=== PATIENT | female | born 1955 | race Caucasian/White ===

== ENCOUNTER 2018-06-22 07:56 | Day surgery (SDC) | payer OTHER ==
[~2018-06-22 07:56] MED LIST: ATOR10 PO; BENAML10/2 PO; FEXPSEER PO; FISH1000 PO; INSDET100; INVOKAMET 150-1 EACH PO; K-Tab10 MEQ PO; MELO7.5 PO; Multiple Vitam1 EAC1 PO; OMEP10ER PO; VARE1; Vitamin D2000 UNIT PO
== END 2018-06-22 22:49 | disposition home or self-care (01) ==
LOC: WOUND 07:56
DX: E11.621 Type 2 diabetes mellitus with foot ulcer (principal); L97.515 Non-pressure chronic ulcer of other part of right foot with muscle involvement without evidence of necrosis; I10 Essential (primary) hypertension; E78.5 Hyperlipidemia, unspecified; G47.30 Sleep apnea, unspecified; F17.210 Nicotine dependence, cigarettes, uncomplicated

== ENCOUNTER 2018-06-29 00:10 | Day surgery (SDC) | payer OTHER | END 2018-06-29 23:07 | disposition home or self-care (01) | LOC: WOUND 00:10 | DX: E11.621 Type 2 diabetes mellitus with foot ulcer (principal); L97.515 Non-pressure chronic ulcer of other part of right foot with muscle involvement without evidence of necrosis; I10 Essential (primary) hypertension; E78.5 Hyperlipidemia, unspecified; G47.30 Sleep apnea, unspecified | CPT/HCPCS: G0463 ==

== ENCOUNTER 2018-07-06 14:56 | Day surgery (SDC) | payer OTHER, BC | END 2018-07-06 22:49 | disposition home or self-care (01) | LOC: WOUND 14:56 | DX: T81.89XA Other complications of procedures, not elsewhere classified, initial encounter (principal); E11.621 Type 2 diabetes mellitus with foot ulcer; L97.515 Non-pressure chronic ulcer of other part of right foot with muscle involvement without evidence of necrosis; E11.59 Type 2 diabetes mellitus with other circulatory complications; G47.30 Sleep apnea, unspecified; E78.5 Hyperlipidemia, unspecified; I10 Essential (primary) hypertension | CPT/HCPCS: G0463 ==

== ENCOUNTER 2018-07-13 10:24 | Day surgery (SDC) | payer OTHER, BC | END 2018-07-13 22:48 | disposition home or self-care (01) | LOC: WOUND 10:24 | DX: E11.621 Type 2 diabetes mellitus with foot ulcer (principal); L97.512 Non-pressure chronic ulcer of other part of right foot with fat layer exposed; M89.8X9 Other specified disorders of bone, unspecified site; I10 Essential (primary) hypertension; E78.5 Hyperlipidemia, unspecified; G47.30 Sleep apnea, unspecified ==

== ENCOUNTER 2018-07-27 10:33 | Day surgery (SDC) | payer OTHER, BC | END 2018-07-27 23:07 | disposition home or self-care (01) | LOC: WOUND 10:33 | DX: E11.621 Type 2 diabetes mellitus with foot ulcer (principal); L97.512 Non-pressure chronic ulcer of other part of right foot with fat layer exposed; I10 Essential (primary) hypertension; E78.5 Hyperlipidemia, unspecified; G47.30 Sleep apnea, unspecified; F17.200 Nicotine dependence, unspecified, uncomplicated | CPT/HCPCS: G0463 ==

== ENCOUNTER 2018-08-10 00:16 | Day surgery (SDC) | payer OTHER, BC | END 2018-08-10 22:59 | disposition home or self-care (01) | LOC: WOUND 00:16 | DX: E11.621 Type 2 diabetes mellitus with foot ulcer (principal); L97.512 Non-pressure chronic ulcer of other part of right foot with fat layer exposed; M89.8X9 Other specified disorders of bone, unspecified site; I10 Essential (primary) hypertension; E11.9 Type 2 diabetes mellitus without complications; E78.5 Hyperlipidemia, unspecified; G47.30 Sleep apnea, unspecified | CPT/HCPCS: G0463 ==

== ENCOUNTER 2020-07-13 09:52 | Day surgery (SDC) | payer BC ==
[~2020-07-13] VITALS: Ht 165.1 cm; Wt 110.9 kg
== END 2020-07-13 12:51 | disposition home or self-care (01) ==
LOC: ORSCSDS 09:52
PROC: 0DBN8ZX Excision of Sigmoid Colon, Via Natural or Artificial Opening Endoscopic, Diagnostic (ICD-10-PCS; principal; 2020-07-13)
DX: Z12.11 Encounter for screening for malignant neoplasm of colon (principal); D12.5 Benign neoplasm of sigmoid colon; K57.30 Diverticulosis of large intestine without perforation or abscess without bleeding; Z86.010 Personal history of colon polyps; E11.9 Type 2 diabetes mellitus without complications; G47.33 Obstructive sleep apnea (adult) (pediatric); E78.5 Hyperlipidemia, unspecified; E66.01 Morbid (severe) obesity due to excess calories; Z68.41 Body mass index [BMI] 40.0-44.9, adult; Z79.4 Long term (current) use of insulin; Z79.899 Other long term (current) drug therapy; Z87.891 Personal history of nicotine dependence
CPT/HCPCS: 82947; 88305; J2704; J7120

== ENCOUNTER 2022-04-22 04:27 | Emergency (ER) | payer BC ==
[~2022-04-22] VITALS: Ht 165.1 cm; Wt 120.2 kg
[~2022-04-22 04:27] MED LIST changes: +OLMESARTAN MEDO20 MG PO; +SYNJARDY XR 251 EAC1 PO
[2022-04-22 04:51] LABS: Source, Urine Clean Catch
[2022-04-22 04:59] LABS: Bilirubin, Urine Neg (Neg); Blood, Urine 3+ (Neg); Glucose Qualitative, Urine 4+ (Neg); Ketones, Urine 3+ (Neg); Leukocyte Esterase, Urine 2+ (Neg); Nitrite, Urine Neg (Neg); Protein, Urine 2+ (Neg); Urobilinogen, Urine NORM (Normal)
[2022-04-22 05:02] LABS: Appearance, Urine Hazy (Clear); Color, Urine Yellow (P-Yellow)
[2022-04-22 05:05] LABS: BASOPHILS ABSOLUTE AUTO 0.04 K/mm3 (0.00-0.23); BASOPHILS PERCENT AUTO 1 % (0-2); EOSINOPHILS PERCENT AUTO 1 % (0-6); Hematocrit 44.4 % (33.0-51.0); Hemoglobin 15.2 g/dL (11.5-16.0); IMMATURE GRAN ABSOLUTE AUTO 0.02 K/mm3 (0.00-0.10); IMMATURE GRAN PERCENT AUTO 0 % (0-1); LYMPHOCYTES ABSOLUTE AUTO 2.12 K/mm3 (0.84-5.20); LYMPHOCYTES PERCENT AUTO 30 % (21-46); MONOCYTES PERCENT AUTO 6 % (4-13); Mean Corpuscular HGB 29.6 pg (26.0-34.0); Mean Corpuscular HGB Conc 34.2 g/dL (31.5-36.5); Mean Corpuscular Volume 86 fL (80-100); NEUTROPHILS ABSOLUTE AUTO 4.32 K/mm3 (1.96-9.15); NEUTROPHILS PERCENT AUTO 62 % (41-73); Platelet Count 192 K/mm3 (150-400); RDW Coefficient Variation 13.2 % (11.7-14.2); RDW Standard Deviation 41.6 fL (35.1-46.3); Red Blood Cell Count 5.14 M/mm3 (3.80-5.20)
[2022-04-22 05:08] LABS: Amorphous Mod (0-Heavy); Bacteria Mod /hpf; Mucus Mod (0-Heavy); Squamous Epithelial Cells Few /hpf (Few); White Blood Cells, Urine TNTC /hpf (0-5)
[2022-04-22 05:24] LABS: Albumin, Blood 3.8 g/dL (3.4-5.0); Bilirubin, Total 0.3 mg/dL (0.1-1.0); Bun/Creatinine Ratio 23.5 (12.0-20.0); Calcium, Blood 8.6 mg/dL (8.5-10.1); Creatinine, Blood 0.68 mg/dL (0.40-1.00); Potassium, Blood 3.7 mmol/L (3.5-5.5); Total Protein, Blood 7.8 g/dL (6.4-8.2)
[2022-04-22] MEDS ORDERED: HYDR1TAB94 PO (06:46)
[2022-04-22] MEDS ORDERED: TAMS.4ER PO (06:46)
[2022-04-22] MEDS ORDERED: CEFP200 PO (06:46)
== END 2022-04-22 07:20 | disposition home or self-care (01) ==
LOC: ER 04:27
PROVIDERS: Student in an Organized Health Care Education/Training Program
DX: N13.6 Pyonephrosis (principal); N39.0 Urinary tract infection, site not specified; Z79.899 Other long term (current) drug therapy; Z87.891 Personal history of nicotine dependence
CPT/HCPCS: 74176; 80053; 81001; 85025; A9270; J1170; J1885; J2405; J7030

== ENCOUNTER 2022-10-01 07:58 | Emergency (ER) | payer MEDICARE, OTHER ==
[~2022-10-01] VITALS: Ht 160 cm; Wt 113.4 kg
[~2022-10-01 07:58] MED LIST changes: +CEFP200 PO; +CEPH500 PO; +FLUC150A PO; +HYDR1TAB94 PO; +TAMS.4ER PO
[2022-10-01 08:17] VITALS: BP 170/101
[2022-10-01 08:27] LABS: Source, Urine Clean Catch
[2022-10-01 08:30] LABS: Appearance, Urine Clear (Clear); Bilirubin, Urine Neg (Neg); Blood, Urine Neg (Neg); Color, Urine Yellow (P-Yellow); Glucose Qualitative, Urine Neg (Neg); Ketones, Urine Neg (Neg); Leukocyte Esterase, Urine 1+ (Neg); Nitrite, Urine Neg (Neg); Protein, Urine Neg (Neg); Specific Gravity, Urine 1.015 (1.003-1.022); Urobilinogen, Urine NORM (Normal)
[2022-10-01 08:50] LABS: Bacteria Mod /hpf
[2022-10-01 08:52] LABS: Red Blood Cells, Urine Not Seen /hpf (0-2); Squamous Epithelial Cells Few /hpf (Few)
[2022-10-01 08:53] LABS: Transitional Epithelial Cells Rare /hpf (0-Rare)
[2022-10-01] MEDS ORDERED: FLUC150A PO (09:23)
[2022-10-01] MEDS ORDERED: LEVO750 PO (09:23)
== END 2022-10-01 09:28 | disposition home or self-care (01) ==
LOC: ER 07:58
PROVIDERS: Physician Assistant
DX: N39.0 Urinary tract infection, site not specified (principal); Z87.442 Personal history of urinary calculi; Z87.891 Personal history of nicotine dependence
CPT/HCPCS: 81001; 87086; 99283; A9270

== ENCOUNTER → 2022-10-24 | Outpatient (CLI) | payer MEDICARE, OTHER ==
[~2022-10-24] MED LIST changes: +LEVO750 PO
[2022-10-24 10:59] LABS: Protein, Urine Quantitative 7.4 mg/dL (0.0-11.9)
[2022-10-24 11:12] LABS: Calcium, Urine 7.2 mg/dL (< 17.5)
[2022-10-24 11:13] LABS: Phosphorus, Urine 78.4 mg/dL (20.0-60.0)
[2022-10-24 11:34] LABS: Microalbumin, Urine Quant. 27.1 mg/L (0.000-20.000); Uric Acid, Urine 40.2 mg/dL (7.5-49.5)
[2022-10-29 05:12] LABS: METANEPHRINE, UR 52 ug/L (Undefined)
== END | disposition home or self-care (01) ==
LOC: LAB SHORT 09:40 → LAB 09:40
PROVIDERS: Internal Medicine Nephrology
DX: N18.2 Chronic kidney disease, stage 2 (mild) (principal); D63.1 Anemia in chronic kidney disease; N25.81 Secondary hyperparathyroidism of renal origin; E55.9 Vitamin D deficiency, unspecified; E78.00 Pure hypercholesterolemia, unspecified; R76.9 Abnormal immunological finding in serum, unspecified; R94.5 Abnormal results of liver function studies; R94.6 Abnormal results of thyroid function studies; D51.8 Other vitamin B12 deficiency anemias; D52.8 Other folate deficiency anemias; D50.9 Iron deficiency anemia, unspecified
CPT/HCPCS: 81050; 82043; 82340; 82507; 82570; 83835; 83945; 84105; 84133; 84156; 84300; 84560

== ENCOUNTER 2023-02-17 02:43 | Emergency (ER) | payer MEDICARE, OTHER ==
[~2023-02-17] VITALS: Ht 162.6 cm; Wt 95.2 kg
[2023-02-17 03:18] LABS: Source, Urine Clean Catch
[2023-02-17 03:20] LABS: BASOPHILS ABSOLUTE AUTO 0.03 K/mm3 (0.00-0.23); BASOPHILS PERCENT AUTO 0 % (0-2); EOSINOPHILS ABSOLUTE AUTO 0.16 K/mm3 (0.00-0.68); EOSINOPHILS PERCENT AUTO 2 % (0-6); Hematocrit 43.9 % (33.0-51.0); Hemoglobin 14.8 g/dL (11.5-16.0); IMMATURE GRAN ABSOLUTE AUTO 0.01 K/mm3 (0.00-0.10); IMMATURE GRAN PERCENT AUTO 0 % (0-1); LYMPHOCYTES PERCENT AUTO 49 % (21-46); MONOCYTES ABSOLUTE AUTO 0.52 K/mm3 (0.16-1.47); MONOCYTES PERCENT AUTO 8 % (4-13); Mean Corpuscular HGB Conc 33.7 g/dL (31.5-36.5); Mean Corpuscular Volume 89 fL (80-100); Mean Platelet Volume 10.1 fL (9.1-12.4); NEUTROPHILS ABSOLUTE AUTO 2.82 K/mm3 (1.96-9.15); NEUTROPHILS PERCENT AUTO 41 % (41-73); Platelet Count 191 K/mm3 (150-400); RDW Coefficient Variation 12.8 % (11.7-14.2); RDW Standard Deviation 41.5 fL (35.1-46.3); Red Blood Cell Count 4.93 M/mm3 (3.80-5.20); White Blood Cell Count 6.94 K/mm3 (4.00-11.30)
[2023-02-17 03:24] LABS: Bilirubin, Urine Neg (Neg); Blood, Urine 3+ (Neg); Glucose Qualitative, Urine 1+ (Neg); Ketones, Urine 1+ (Neg); Leukocyte Esterase, Urine 2+ (Neg); Nitrite, Urine Neg (Neg); Protein, Urine 2+ (Neg); Urobilinogen, Urine NORM (Normal)
[2023-02-17 03:30] LABS: Albumin, Blood 3.8 g/dL (3.4-5.0); Bilirubin, Total 0.3 mg/dL (0.1-1.0); Calcium, Blood 8.4 mg/dL (8.5-10.1); Creatinine, Blood 0.8 mg/dL (0.40-1.00); Globulin, Blood 3.9 g/dL (2.2-4.0); Total Protein, Blood 7.7 g/dL (6.4-8.2)
[2023-02-17 03:32] LABS: Appearance, Urine Hazy (Clear); Color, Urine Yellow (P-Yellow)
[2023-02-17 03:43] LABS: Bacteria Mod /hpf; Squamous Epithelial Cells Few /hpf (Few); White Blood Cells, Urine 25-50 /hpf (0-5)
[2023-02-17 05:37] VITALS: BP 193/88
[2023-02-17] MEDS ORDERED: Roxicodone5 MG PO (05:38)
[2023-02-17] MEDS ORDERED: CEFD300 PO (05:38)
[2023-02-17] MEDS ORDERED: Flomax0.4 MG PO (05:38)
== END 2023-02-17 05:46 | disposition home or self-care (01) ==
LOC: ER 02:43
PROVIDERS: Emergency Medicine
DX: N13.2 Hydronephrosis with renal and ureteral calculous obstruction (principal); G47.33 Obstructive sleep apnea (adult) (pediatric); K59.00 Constipation, unspecified; Z87.891 Personal history of nicotine dependence; Z79.1 Long term (current) use of non-steroidal anti-inflammatories (NSAID); Z79.891 Long term (current) use of opiate analgesic; Z79.899 Other long term (current) drug therapy
CPT/HCPCS: 74176; 76770; 80053; 81001; 85025; 87086; 96365; 96375; 99284-25; A9270; J0696; J1885

== ENCOUNTER 2023-02-25 16:14 | Emergency (ER) | payer MEDICARE, OTHER ==
[~2023-02-25] VITALS: Ht 162.6 cm; Wt 113.4 kg
[~2023-02-25 16:14] MED LIST changes: -ONDA4ODT MM; -Percocet 5-3251 EACH PO; -TOUJEO MAX300 UNIT/2 SC; -TRULICITY4.5 MG/0.5 SC
[2023-02-25 17:07] LABS: BASOPHILS ABSOLUTE AUTO 0.03 K/mm3 (0.00-0.23); BASOPHILS PERCENT AUTO 0 % (0-2); EOSINOPHILS ABSOLUTE AUTO 0.15 K/mm3 (0.00-0.68); EOSINOPHILS PERCENT AUTO 2 % (0-6); Hematocrit 43.3 % (33.0-51.0); Hemoglobin 14.4 g/dL (11.5-16.0); IMMATURE GRAN ABSOLUTE AUTO 0.01 K/mm3 (0.00-0.10); IMMATURE GRAN PERCENT AUTO 0 % (0-1); LYMPHOCYTES ABSOLUTE AUTO 2.01 K/mm3 (0.84-5.20); LYMPHOCYTES PERCENT AUTO 30 % (21-46); MONOCYTES ABSOLUTE AUTO 0.45 K/mm3 (0.16-1.47); MONOCYTES PERCENT AUTO 7 % (4-13); Mean Corpuscular HGB 29.8 pg (26.0-34.0); Mean Corpuscular HGB Conc 33.3 g/dL (31.5-36.5); Mean Corpuscular Volume 90 fL (80-100); Mean Platelet Volume 9.9 fL (9.1-12.4); NEUTROPHILS PERCENT AUTO 61 % (41-73); Platelet Count 227 K/mm3 (150-400); RDW Coefficient Variation 12.9 % (11.7-14.2); RDW Standard Deviation 42.1 fL (35.1-46.3); Red Blood Cell Count 4.83 M/mm3 (3.80-5.20); White Blood Cell Count 6.75 K/mm3 (4.00-11.30)
[2023-02-25 17:22] LABS: Source, Urine Clean Catch
[2023-02-25 17:27] LABS: Appearance, Urine Hazy (Clear); Bilirubin, Urine Neg (Neg); Blood, Urine 2+ (Neg); Color, Urine Yellow (P-Yellow); Glucose Qualitative, Urine 4+ (Neg); Ketones, Urine Neg (Neg); Leukocyte Esterase, Urine 2+ (Neg); Nitrite, Urine Pos (Neg); Protein, Urine 2+ (Neg); Urobilinogen, Urine NORM (Normal)
[2023-02-25 17:29] LABS: Albumin, Blood 3.6 g/dL (3.4-5.0); Albumin/Globulin Ratio 0.9 (0.8-1.8); Bilirubin, Total 0.3 mg/dL (0.1-1.0); Calcium, Blood 8.8 mg/dL (8.5-10.1); Globulin, Blood 4.2 g/dL (2.2-4.0); Potassium, Blood 4.2 mmol/L (3.5-5.5); Total Protein, Blood 7.8 g/dL (6.4-8.2)
[2023-02-25 17:38] LABS: Bacteria Mod /hpf; Squamous Epithelial Cells Few /hpf (Few)
[2023-02-25] MEDS ORDERED: TOUJEO MAX300 UNIT/2 SC (18:50)
[2023-02-25] MEDS ORDERED: TRULICITY4.5 MG/0.5 SC (18:50)
[2023-02-25 18:59] VITALS: BP 169/88
[2023-02-25] MEDS ORDERED: TAMS.4ER PO (19:34)
[2023-02-25] MEDS ORDERED: Percocet 5-3251 EACH PO (19:34)
[2023-02-25] MEDS ORDERED: ONDA4ODT MM (19:34)
== END 2023-02-25 19:43 | disposition home or self-care (01) ==
LOC: ER 16:14
PROVIDERS: Physician Assistant
DX: N39.0 Urinary tract infection, site not specified (principal); E11.9 Type 2 diabetes mellitus without complications; Z79.899 Other long term (current) drug therapy; Z87.891 Personal history of nicotine dependence; Z87.442 Personal history of urinary calculi
CPT/HCPCS: 80053; 81001; 85025; 87086; 96374; 96375; 99283-25; A9270; J1885; J2405

== ENCOUNTER → 2023-02-25 | Outpatient (CLI) | payer MEDICARE, OTHER ==
[~2023-02-25] MED LIST changes: +CEFD300 PO; +Flomax0.4 MG PO; +K-TAB ER20 MEQ PO; -K-Tab10 MEQ PO; -OMEP10ER PO; +OMEP20ER PO; +ONDA4ODT MM; +Percocet 5-3251 EACH PO; +Roxicodone5 MG PO; +TOUJEO MAX300 UNIT/2 SC; +TRULICITY4.5 MG/0.5 SC
== END ==
LOC: LAB SHORT 17:01 → LAB 17:01
DX: N39.0 Urinary tract infection, site not specified (principal)
CPT/HCPCS: 87077; 87086; 87186

== ENCOUNTER → 2023-04-23 | Outpatient (CLI) | payer MEDICARE, OTHER ==
[~2023-04-23] MED LIST changes: +ONDA4ODT MM; +Percocet 5-3251 EACH PO; +TOUJEO MAX300 UNIT/2 SC; +TRULICITY4.5 MG/0.5 SC
== END ==
LOC: LAB 17:51 → LAB SHORT 17:51
DX: R30.0 Dysuria (principal)
CPT/HCPCS: 87086

== ENCOUNTER 2023-09-16 19:57 | Emergency (ER) | payer MEDICARE, OTHER ==
[~2023-09-16] VITALS: Ht 165.1 cm; Wt 77.1 kg
[2023-09-16 20:39] VITALS: BP 204/71
[2023-09-16 21:01] LABS: BASOPHILS ABSOLUTE AUTO 0.04 K/mm3 (0.00-0.23); BASOPHILS PERCENT AUTO 1 % (0-2); EOSINOPHILS ABSOLUTE AUTO 0.09 K/mm3 (0.00-0.68); EOSINOPHILS PERCENT AUTO 1 % (0-6); Hematocrit 43.6 % (33.0-51.0); Hemoglobin 14.7 g/dL (11.5-16.0); IMMATURE GRAN ABSOLUTE AUTO 0.01 K/mm3 (0.00-0.10); IMMATURE GRAN PERCENT AUTO 0 % (0-1); LYMPHOCYTES ABSOLUTE AUTO 1.57 K/mm3 (0.84-5.20); LYMPHOCYTES PERCENT AUTO 24 % (21-46); MONOCYTES ABSOLUTE AUTO 0.41 K/mm3 (0.16-1.47); MONOCYTES PERCENT AUTO 6 % (4-13); Mean Corpuscular HGB 30.2 pg (26.0-34.0); Mean Corpuscular HGB Conc 33.7 g/dL (31.5-36.5); Mean Corpuscular Volume 90 fL (80-100); Mean Platelet Volume 10.7 fL (9.1-12.4); NEUTROPHILS ABSOLUTE AUTO 4.47 K/mm3 (1.96-9.15); NEUTROPHILS PERCENT AUTO 68 % (41-73); Platelet Count 191 K/mm3 (150-400); RDW Coefficient Variation 13.3 % (11.7-14.2); RDW Standard Deviation 43.4 fL (35.1-46.3); Red Blood Cell Count 4.87 M/mm3 (3.80-5.20); White Blood Cell Count 6.59 K/mm3 (4.00-11.30)
[2023-09-16 21:07] LABS: Source, Urine Clean Catch
[2023-09-16 21:12] LABS: Appearance, Urine Hazy (Clear); Bilirubin, Urine Neg (Neg); Blood, Urine 5+ (Neg); Color, Urine Yellow (P-Yellow); Glucose Qualitative, Urine 4+ (Neg); Ketones, Urine 1+ (Neg); Leukocyte Esterase, Urine 2+ (Neg); Nitrite, Urine Neg (Neg); Protein, Urine 2+ (Neg); Urobilinogen, Urine NORM (Normal)
[2023-09-16 21:22] LABS: Bacteria Many /hpf; Red Blood Cells, Urine 50-100 /hpf (0-2); Squamous Epithelial Cells Mod /hpf (Few)
[2023-09-16 21:27] LABS: Albumin, Blood 3.5 g/dL (3.4-5.0); Albumin/Globulin Ratio 0.9 (0.8-1.8); Bilirubin, Total 0.4 mg/dL (0.1-1.0); Bun/Creatinine Ratio 30.9 (12.0-20.0); Calcium, Blood 8.3 mg/dL (8.5-10.1); Creatinine, Blood 0.71 mg/dL (0.40-1.00); Globulin, Blood 3.8 g/dL (2.2-4.0); Potassium, Blood 4.3 mmol/L (3.5-5.5); Total Protein, Blood 7.3 g/dL (6.4-8.2)
[2023-09-17] MEDS ORDERED: RX Prepack 6 Tabs Oxycodone 5mg UD ONE (01:20)
[2023-09-17] MEDS ORDERED: Ketorolac Tromethamine 30mg Vial IV ONE (01:20)
[2023-09-17] MEDS ORDERED: Tamsulosin HCl 0.4 MG Cap PO ONE (01:20)
[2023-09-17] MEDS ORDERED: TAMS.4ER PO (01:24)
== END 2023-09-17 01:42 | disposition home or self-care (01) ==
LOC: ER 19:57
PROVIDERS: Student in an Organized Health Care Education/Training Program
DX: N13.2 Hydronephrosis with renal and ureteral calculous obstruction (principal); E11.65 Type 2 diabetes mellitus with hyperglycemia; I10 Essential (primary) hypertension; Z79.899 Other long term (current) drug therapy; Z79.4 Long term (current) use of insulin; Z79.890 Hormone replacement therapy; Z87.891 Personal history of nicotine dependence
CPT/HCPCS: 74177; 80053; 81001; 83690; 85025; 87086; 93005; 93010; 96374; 99284-25; A9270; J1885; Q9967

== ENCOUNTER → 2024-01-21 | Outpatient (CLI) | payer MEDICARE, OTHER | LOC: LAB SHORT 12:51 → LAB 12:51 | DX: R30.0 Dysuria (principal) | CPT/HCPCS: 87077; 87086; 87186 ==

== ENCOUNTER 2025-01-22 01:51 | Inpatient (IN) | payer MEDICARE, OTHER ==
[~2025-01-22] VITALS: Ht 165.1 cm; Wt 107.6 kg
[2025-01-22 02:12] LABS: pH Blood Venous 7.32 (7.34-7.37)
[2025-01-22 02:25] LABS: BASOPHILS ABSOLUTE AUTO 0.06 K/mm3 (0.00-0.23); BASOPHILS PERCENT AUTO 1 % (0-2); EOSINOPHILS ABSOLUTE AUTO 0.19 K/mm3 (0.00-0.68); EOSINOPHILS PERCENT AUTO 2 % (0-6); Hematocrit 48.4 % (33.0-51.0); Hemoglobin 16.5 g/dL (11.5-16.0); IMMATURE GRAN ABSOLUTE AUTO 0.02 K/mm3 (0.00-0.10); IMMATURE GRAN PERCENT AUTO 0 % (0-1); LYMPHOCYTES ABSOLUTE AUTO 4.52 K/mm3 (0.84-5.20); LYMPHOCYTES PERCENT AUTO 49 % (21-46); MONOCYTES ABSOLUTE AUTO 0.54 K/mm3 (0.16-1.47); MONOCYTES PERCENT AUTO 6 % (4-13); Mean Corpuscular HGB Conc 34.1 g/dL (31.5-36.5); Mean Corpuscular Volume 92 fL (80-100); NEUTROPHILS ABSOLUTE AUTO 3.95 K/mm3 (1.96-9.15); NEUTROPHILS PERCENT AUTO 43 % (41-73); NRBC ABSOLUTE 0.00 K/mm3 (0.00-0.02); NRBC Auto 0.0 /100 WBC (0.0-0.2); Platelet Count 190 K/mm3 (150-400); RDW Coefficient Variation 13.0 % (11.7-14.2); RDW Standard Deviation 43.3 fL (35.1-46.3)
[2025-01-22 02:37] LABS: Alanine Aminotransfer (ALT/SGP 36.0 U/L (12-78); Albumin, Blood 3.8 g/dL (3.4-5.0); Albumin/Globulin Ratio 1.0 (0.8-1.8); Anion Gap 6.0 mmol/L (3-11); Aspartate Aminotrans (AST/SGOT 26.0 U/L (12-37); Bilirubin, Total 0.5 mg/dL (0.1-1.0); Blood Urea Nitrogen 21.0 mg/dL (8-24); CO2, Blood 30.0 mmol/L (21-32); Calcium, Blood 8.9 mg/dL (8.5-10.1); Chloride, Blood 106.0 mmol/L (98-108); Creatinine, Blood 0.71 mg/dL (0.40-1.00); Globulin, Blood 3.7 g/dL (2.2-4.0); Glucose, Blood 190.0 mg/dL (70-99); Magnesium, Blood 2.0 mg/dL (1.6-2.4); Phosphorus, Blood 4.7 mg/dL (2.5-4.9); Potassium, Blood 3.9 mmol/L (3.5-5.5); Sodium, Blood 138.0 mmol/L (136-145); Total Protein, Blood 7.5 g/dL (6.4-8.2)
[2025-01-22 02:41] LABS: D-Dimer, Quantitative 0.56 mg/L FEU (0.00-0.52); Prothrombin Time Results 11.5 Sec (9.7-11.5)
[2025-01-22] MEDS ORDERED: FLU VACC TS2025-26(6MOS UP)/PF 45 MCG/0.5 ML SYRINGE IM SCH (03:10)
[2025-01-22] MEDS ORDERED: MOUNJARO15 MG/0.5 SC (04:00)
[2025-01-22] MEDS ORDERED: B-12500 MC2 PO (04:05)
[2025-01-22] MEDS ORDERED: FURO20 PO (04:07)
[2025-01-22 04:15] VITALS: BP 125/76
[2025-01-22] MEDS ORDERED: Furosemide 10 MG / ML 2ML Vial IV SCH (06:00)
--- NOTE | 2025-01-22 06:03 | NUR ---
SHIFT SUMMARY REPORT RECIEVED FROM ELEONORA IN ER. PT ARRIVED TO PCU AROUND 0345. PT WAS SLID FROM [facility] TO PCU BED. PT A&O X4, CALM, COOPERATIVE TO CARE. HR IN THE 110'S-130'S, SINUS TACH. SHE DENIES ANY CP/PRESSURE, NUMB/TINGLING, SBP STABLE. PROVIDER AT BEDSIDE NOTIFIED OF ELEVATED HR, TO REVIEW AND PLACE ORDERS. PT ON BIPAP AT THIS TIME, Sp02 >90%, SHE REPORTS IMRPOVEMENT IN BREATHING. DIURETICS SCHEDULED FOR THIS AM. PT RELAXING IN BED AT THIS TIME. CALL LIGHT IN REACH. WILL MONITOR PT AND REPORT TO ONCOMING RN.
[2025-01-22 07:43] VITALS: BP 140/87
[2025-01-22] MEDS ORDERED: Ipratropium/Albuterol SulF 2.5-0.5MG/3 ML Amp INH PRN (07:45)
[2025-01-22 08:34] LABS: BASOPHILS ABSOLUTE AUTO 0.05 K/mm3 (0.00-0.23); BASOPHILS PERCENT AUTO 1 % (0-2); EOSINOPHILS ABSOLUTE AUTO 0.02 K/mm3 (0.00-0.68); EOSINOPHILS PERCENT AUTO 0 % (0-6); Hematocrit 46.3 % (33.0-51.0); Hemoglobin 15.8 g/dL (11.5-16.0); IMMATURE GRAN ABSOLUTE AUTO 0.03 K/mm3 (0.00-0.10); IMMATURE GRAN PERCENT AUTO 0 % (0-1); LYMPHOCYTES ABSOLUTE AUTO 2.73 K/mm3 (0.84-5.20); LYMPHOCYTES PERCENT AUTO 30 % (21-46); MONOCYTES ABSOLUTE AUTO 0.62 K/mm3 (0.16-1.47); MONOCYTES PERCENT AUTO 7 % (4-13); Mean Corpuscular HGB Conc 34.1 g/dL (31.5-36.5); Mean Corpuscular Volume 90 fL (80-100); NEUTROPHILS ABSOLUTE AUTO 5.72 K/mm3 (1.96-9.15); NEUTROPHILS PERCENT AUTO 62 % (41-73); NRBC ABSOLUTE 0.00 K/mm3 (0.00-0.02); NRBC Auto 0.0 /100 WBC (0.0-0.2); Platelet Count 203 K/mm3 (150-400); RDW Coefficient Variation 12.9 % (11.7-14.2); RDW Standard Deviation 42.3 fL (35.1-46.3)
--- NOTE | 2025-01-22 08:35 | NUR ---
ASSUMPTION OF CARE ASSUMED CARE OF PATIENT AT APPRXIMATELY 0700. PT RESTING IN BED, ALERT AND ORIENTED X4, PT ANSWERS QUESTIONS APPROPRIATELY, FOLLOWS DIRECITON WHEN PROMPTED AND IS ABLE TO MAKE HER NEEDS KNOWN. PT MOVES EXTREMITIES EQUALLY BILATERALLY, AMBULATES TO BEDSIDE COMMODE WITH SBA. HR 100-120'S SINUS, MAP >65, PT DENIES CP/PRESSURE. PT ON 3LPM VIA NC, DECREASED TO 2LPM, PT DENIES SOB/DIFFICULTY BREATHING. ABDOMEN SOFT, BOWEL TONES HYPOACTIVE BUT PRESENT THROUGHOUT. PT USES BEDSIDE COMMODE TO VOID. PIV IN PLACE TO LAC AND RIGHT WRIST SL. BED IN LOWEST POSITION, CALL LIGHT WITHIN REACH, CARE CONTINUES.
[2025-01-22] MEDS ORDERED: Enoxaparin 40 MG/0.4 ML SYR SC SCH (09:00)
[2025-01-22 09:11] LABS: Alanine Aminotransfer (ALT/SGP 33.0 U/L (12-78); Albumin, Blood 4.0 g/dL (3.4-5.0); Albumin/Globulin Ratio 1.2 (0.8-1.8); Anion Gap 8.0 mmol/L (3-11); Aspartate Aminotrans (AST/SGOT 23.0 U/L (12-37); Bilirubin, Total 0.5 mg/dL (0.1-1.0); Blood Urea Nitrogen 17.0 mg/dL (8-24); CO2, Blood 29.0 mmol/L (21-32); Calcium, Blood 9.0 mg/dL (8.5-10.1); Chloride, Blood 106.0 mmol/L (98-108); Creatinine, Blood 0.68 mg/dL (0.40-1.00); Globulin, Blood 3.4 g/dL (2.2-4.0); Glucose, Blood 93.0 mg/dL (70-99); Potassium, Blood 3.7 mmol/L (3.5-5.5); Sodium, Blood 139.0 mmol/L (136-145); Total Protein, Blood 7.4 g/dL (6.4-8.2)
[2025-01-22 11:39] VITALS: BP 150/77
[2025-01-22] MEDS ORDERED: Insulin Human Lispro 100 Units/ML 3ML Syringe SC SCH ×3 (12:00→16:30)
[2025-01-22] MEDS ORDERED: Insulin Glargine 100 Unit/ML 3 ML SYR SC SCH (13:03)
[2025-01-22] MEDS ORDERED: Insulin Glargine-Yfgn 100 Unit/mL 3 ML SYR SC SCH (13:05)
[2025-01-22] MEDS ORDERED: Insulin Regular 100 UNIT/ML 10ML Vial SC SCH (16:30)
[2025-01-22 16:39] VITALS: BP 145/111
--- NOTE | 2025-01-22 17:32 | NUR ---
SHIFT SUMMARY PT ALERT AND ORIENTED X4, SITTING UP IN RECLINER. PT ANSWERS QUESTIONS APPROPRIATELY, FOLLOWS DIRECTION WHEN PROMPTED AND IS ABLE TO MAKE HER NEEDS KNOWN. PT MOVES EXTREMITIES EQUALLY BILATERALLY. AMBULATES IN THE ROOM WITH SBA. PT COMPLAINING OF HEADACHE THIS SHIFT, MEDICATED PER EMAR. HR 100-130'S SINUS, MAP >65. PT ON RA, OXYGEN SATURATION >92%. ABDOMEN SOFT, BOWEL TONES ACTIVE THROUGHOUT, PT TOLERATING PO INTAKE. PT AMBULATES TO TOILET TO VOID. PIV IN PLACE TO RFA AND LAC SL. CALL LIGHT WITHIN REACH, CARE CONTINUES.
[2025-01-22 19:28] VITALS: BP 138/62
[2025-01-22 23:46] VITALS: BP 121/60
[2025-01-23 03:25] VITALS: BP 115/65
[2025-01-23 04:39] LABS: BASOPHILS ABSOLUTE AUTO 0.05 K/mm3 (0.00-0.23); BASOPHILS PERCENT AUTO 1 % (0-2); EOSINOPHILS ABSOLUTE AUTO 0.14 K/mm3 (0.00-0.68); EOSINOPHILS PERCENT AUTO 2 % (0-6); Hematocrit 42.7 % (33.0-51.0); Hemoglobin 14.9 g/dL (11.5-16.0); IMMATURE GRAN ABSOLUTE AUTO 0.01 K/mm3 (0.00-0.10); IMMATURE GRAN PERCENT AUTO 0 % (0-1); LYMPHOCYTES ABSOLUTE AUTO 3.06 K/mm3 (0.84-5.20); LYMPHOCYTES PERCENT AUTO 41 % (21-46); MONOCYTES ABSOLUTE AUTO 0.54 K/mm3 (0.16-1.47); MONOCYTES PERCENT AUTO 7 % (4-13); Mean Corpuscular HGB Conc 34.9 g/dL (31.5-36.5); Mean Corpuscular Volume 91 fL (80-100); NEUTROPHILS ABSOLUTE AUTO 3.64 K/mm3 (1.96-9.15); NEUTROPHILS PERCENT AUTO 49 % (41-73); NRBC ABSOLUTE 0.00 K/mm3 (0.00-0.02); NRBC Auto 0.0 /100 WBC (0.0-0.2); Platelet Count 188 K/mm3 (150-400); RDW Coefficient Variation 13.1 % (11.7-14.2); RDW Standard Deviation 43.0 fL (35.1-46.3)
[2025-01-23 05:01] LABS: Albumin, Blood 3.5 g/dL (3.4-5.0); Anion Gap 8 mmol/L (3-11); Blood Urea Nitrogen 18 mg/dL (8-24); CO2, Blood 28 mmol/L (21-32); Calcium, Blood 8.9 mg/dL (8.5-10.1); Chloride, Blood 105 mmol/L (98-108); Creatinine, Blood 0.69 mg/dL (0.40-1.00); Glucose, Blood 108 mg/dL (70-99); Magnesium, Blood 2.3 mg/dL (1.6-2.4); Phosphorus, Blood 5.1 mg/dL (2.5-4.9); Potassium, Blood 3.4 mmol/L (3.5-5.5); Sodium, Blood 138 mmol/L (136-145)
--- NOTE | 2025-01-23 06:29 | NUR ---
SHIFT SUMMARY PT A&O X4, CALM, COOPPERATIVE TO CARE. HR IN THE 90'S-120'S. HR INCREASES WITH ACTIVITY. SHE DENIES ANY CP/PRESSURE, NUMB/TINGLING, SBP STABLE. PT ON RA WHILE AWAKE. SHE USES CPAP AT HOME FOR NOC USE. HOSPITAL CPAP AT BEDSIDE PT WORE FOR A FEW HOURS T/O NIGHT BUT TOOK IT OFF. PT PLACED ON 2L VIA NC FOR SLEEP. SpO2 >92%. SHE DENIES ANY SOB. PT UP WALKING TO BATHROOM T/O SHIFT. SHE DENIES ANY PAIN. PT DENIES ANY QUESTIONS/CONCERNS AT THIS TIME. PT RESTING IN BED AT THIS TIME. CALL LIGHT IN REACH. WILL MONITOR PT AND REPORT TO ONCOMING RN. PT HAD TROPONIN OF 256 THIS AM. SHE DENIED ANY CP/PRESSURE OR SOB. VSS. NOTIFIED, ORDER PLACED FOR CARDIOLOGY CONSULT AND REPEAT TROPONIN FOR 0900.
[2025-01-23 07:17] VITALS: BP 133/83
[2025-01-23 12:27] VITALS: BP 147/94
[2025-01-23 15:21] VITALS: BP 130/81
--- NOTE | 2025-01-23 18:28 | NUR ---
SHIFT SUMMARY PATIENT IS ALERT AND ORIENTED, ABLE TO FOLLOW COMMANDS AND MAKE NEEDS KNOWN. VSS, TELE IN PLACE, SINUS RHYHTM TO SINUS TACH, HR 80'S-100'S, SPO2 >90% ON RA. PATIENT DENIES PRESENCE OF CHEST PAIN OR PRESSURE. CARDIOLOGY CONSULTED DUE TO ELEVATED TROPONIN, SEE NOTE FOR FURTHER INFORMATION. ANGIOGRAM TO BE PERFORMED 01/24/25. PATIENT DENIES N/V/D, DENIES ABDOMINAL PAIN. PATIENT IS INDEPENDENT IN ROOM, CALLS WHEN APPROPRIATE. PATIENT IS UP IN CHAIR, CALL LIGHT WITHIN REACH, CONTINUING CARE PER CARE PLAN.
[2025-01-23 19:28] VITALS: BP 143/81
[2025-01-23 23:30] VITALS: BP 134/83
[2025-01-24] VITALS (16 sets, daily range): BP systolic 112–153; BP diastolic 59–137
--- NOTE | 2025-01-24 00:58 | NUR ---
NURSE NOTE PT BLOOD SUGAR 68 AT 2342, SNACK AND JUICE PROVIDED. 0000 INSULIN HELD. RECHECK AT 0026 SHOWS 132. PT IS NOW NPO FOR ANGIO IN THE AM. VSS, PT CURRENTLY TRYING TO REST.
--- NOTE | 2025-01-24 05:48 | NUR ---
NOC SHIFT SUMMARY PT IS A&OX4 ABLE TO MAKE NEEDS KNOWN. IDEPENT IN THE ROOM AND TO BR. SHE WAS ABLE TO REST ON AND OFF DURING THE NIGHT IN BETWEEN CARES. DENIES CHEST PAIN OR PRESSURE. BP STABLE. TELE IN PLACE SHOWING SINUS AT THIS TIME RATE OF 96. WATER ONLY SINCE 0000, NPO AT BREAKFAST FOR ANGIO TODAY. >95% ON 2 L NC FOR SLEEP, PT REFUSED TO WEAR CPAP TONIGHT. BREATHING EVEN AND UNLABORED, IN NO ACUTE DISTRESS. PT CURRENTLY UP IN CHAIR WATCHING TV. CALL LIGHT IN REACH. DENIES NEEDS AT THIS TIME. WILL REPORT TO ONCOMING RN.
[2025-01-24 07:15] LABS: BASOPHILS ABSOLUTE AUTO 0.05 K/mm3 (0.00-0.23); BASOPHILS PERCENT AUTO 1 % (0-2); EOSINOPHILS ABSOLUTE AUTO 0.19 K/mm3 (0.00-0.68); EOSINOPHILS PERCENT AUTO 3 % (0-6); Hematocrit 44.6 % (33.0-51.0); Hemoglobin 15.3 g/dL (11.5-16.0); IMMATURE GRAN ABSOLUTE AUTO 0.01 K/mm3 (0.00-0.10); IMMATURE GRAN PERCENT AUTO 0 % (0-1); LYMPHOCYTES ABSOLUTE AUTO 2.60 K/mm3 (0.84-5.20); LYMPHOCYTES PERCENT AUTO 40 % (21-46); MONOCYTES ABSOLUTE AUTO 0.58 K/mm3 (0.16-1.47); MONOCYTES PERCENT AUTO 9 % (4-13); Mean Corpuscular HGB Conc 34.3 g/dL (31.5-36.5); Mean Corpuscular Volume 91 fL (80-100); NEUTROPHILS ABSOLUTE AUTO 3.11 K/mm3 (1.96-9.15); NEUTROPHILS PERCENT AUTO 47 % (41-73); NRBC ABSOLUTE 0.00 K/mm3 (0.00-0.02); NRBC Auto 0.0 /100 WBC (0.0-0.2); Platelet Count 197 K/mm3 (150-400); RDW Coefficient Variation 13.1 % (11.7-14.2); RDW Standard Deviation 43.4 fL (35.1-46.3)
[2025-01-24 07:32] LABS: Anion Gap 5.0 mmol/L (3-11); Blood Urea Nitrogen 17.0 mg/dL (8-24); CO2, Blood 30.0 mmol/L (21-32); Calcium, Blood 9.0 mg/dL (8.5-10.1); Chloride, Blood 107.0 mmol/L (98-108); Creatinine, Blood 0.76 mg/dL (0.40-1.00); Glucose, Blood 96.0 mg/dL (70-99); Potassium, Blood 4.0 mmol/L (3.5-5.5); Sodium, Blood 138.0 mmol/L (136-145)
[2025-01-24] MEDS ORDERED: Insulin Glargine 100 Unit/ML 3 ML SYR SC SCH (09:00)
--- NOTE | 2025-01-24 11:00 | NUR ---
UPDATE PATIENT REPORTS FEELING HOT AND SWEATY, STATES THAT SHE TENDS TO FEEL THIS WAY WHEN SHE IS HYPOGLYCEMIC, POC GLUCOSE OBTAINED, GLUCOSE IN 80'S. NO INTERVENTIONS AT THIS TIME. 1135 [employer] TO TAKE PATIENT FOR ANGIOGRAM SOON, BLOOD GLUCOSE RECHECKED, GLUCOSE IN 90'S, PATIENT DENIES INCREASED SYMPTOMS. 1150 [employer] RNs AT BEDSIDE. PATIENT LEFT UNIT VIA HOSPITAL BED TO [employer]. PATIENT DENIES CHEST PAIN OR PRESSURE AT THIS TIME, PATIENT IN NO SIGNS OF DISTRESS.
[2025-01-24] MEDS ORDERED: Verapamil HCL 2.5 MG/ML 2ML Injection ONE (11:37)
[2025-01-24] MEDS ORDERED: Nitroglycerin 2 MG/20 ML BTL ONE (11:38)
[2025-01-24] MEDS ORDERED: NS 250 ML IV ONE (11:38)
[2025-01-24] MEDS ORDERED: Heparin Sodium 1000 Units/ML 10ML MDV ONE (11:38)
[2025-01-24] MEDS ORDERED: NS 1,000 ML IV ONE ×2 (11:38→11:39)
[2025-01-24] MEDS ORDERED: Midazolam HCl 1MG / ML 2ML Vial ONE (12:00)
[2025-01-24] MEDS ORDERED: FentaNYL Citrate 50 MCG/ML 2 ML Injection ONE (12:00)
--- NOTE | 2025-01-24 12:51 | NUR ---
RETURN TO ROOM: PATIENT RETURNS TO ROOM FROM [employer]. 10CC'S IN BAND ON RIGHT RADIAL, DENIED ANY PAIN AT THIS TIME. VITAL SIGNS CYCLING,CALL LIGHT WITHIN REACH & BED IN LOWEST LOCKED POSITION.
--- NOTE | 2025-01-24 18:19 | NUR ---
SHIFT SUMMARY PATIENT IS ALERT AND ORIENTED, ABLE TO FOLLOW COMMANDS AND MAKE NEEDS KNOWN. VSS, TELE IN PLACE, SINUS TACH 100'S, SPO2 >90% ON RA. PATIENT DENIES PRESENCE OF CHEST PAIN, PRESSURE, OR SHORTNESS OF BREATH. PATIENT DENIES N/V/D. PATIENT HAD ANGIOGRAM THIS SHIFT, RIGHT RADIAL SITE, NO PRESENCE OF HEMATOMA OR BLEEDING, RIGHT WRIST IMMOBLIZER IN PLACE. PATIENT IS CONTINENT OF URINE. PATIENT HAD HYPOGLYCEMIC EVENT OVERNIGHT, CONTACTED PROVIDER THIS AM REGARDING INSULIN DOSAGE, NEW ORDERS RECEIVED. PATIENT IS INDEPENDENT IN ROOM, CALLS APPROPRIATELY. PATIENT IS UP IN BED, BED IN LOWEST POSITION, CALL LIGHT WITHIN REACH.
--- NOTE | 2025-01-24 20:10 | NUR ---
ASSUMED CARE OF THIS PATIENT AT 1900. PT IS ALERT, ORIENTATED TO SELF, PERSON, AND SITUATION. PT UNSURE OF DATE, AND LOCATION. PT SPOUSE AT BEDSIDE DURING BEDSIDE SHIFT REPORT. PT MEDICATED PRIOR TO THIS RN ARRIVAL D/T VISUAL HALLUCINATIONS, PT NOW DENYING SYSMTOMS AFTER BEING MEDICATED. IV FLUIDS STARTED PER EMAR. PT CURRENTLY SITTING UP IN BED EATING A SNACK, BED IN LOW, BED ALARM ON FOR SAFETY. CALL LIGHT IN REACH.
--- NOTE | 2025-01-24 20:19 | NUR ---
ASSUMED CARE OF THIS PT AT 1900. PT IS A&OX4 ABLE TO MAKE NEEDS KNOWN. TR BAND FULLY RECOVERED PRIOR TO THIS RN ARRIVAL. R RADIAL SITE FREE OF REDNESS, BRUISING, OR HEMATOMA. PT DENIES PAIN TO RADIAL ACCESS. TR BAND REMOVED, AREA CLEANSED AND TEGADERM PLACED AT 1905. VSS, SATTING >94% ON ROOM AIR. BREATHING EVEN AND UNLABORED. PT IS INDEPENT IN THE ROOM. BED IN LOW, CALL LIGHT IN REACH.
[2025-01-24] MEDS ORDERED: Insulin Glargine-Yfgn 100 Unit/mL 3 ML SYR SC SCH (21:00)
[2025-01-24] MEDS ORDERED: Insulin Regular 100 UNIT/ML 10ML Vial SC SCH ×2 (21:00)
[2025-01-25 00:18] VITALS: BP 122/91
[2025-01-25 04:23] VITALS: BP 107/93
[2025-01-25 04:29] LABS: Albumin, Blood 3.6 g/dL (3.4-5.0); Anion Gap 8 mmol/L (3-11); Blood Urea Nitrogen 16 mg/dL (8-24); CO2, Blood 26 mmol/L (21-32); Calcium, Blood 8.8 mg/dL (8.5-10.1); Chloride, Blood 107 mmol/L (98-108); Creatinine, Blood 0.67 mg/dL (0.40-1.00); Glucose, Blood 106 mg/dL (70-99); Magnesium, Blood 2.3 mg/dL (1.6-2.4); Phosphorus, Blood 4.4 mg/dL (2.5-4.9); Potassium, Blood 3.8 mmol/L (3.5-5.5); Sodium, Blood 137 mmol/L (136-145)
--- NOTE | 2025-01-25 05:30 | NUR ---
NOC SHIFT SUMMARY PT REMAINS A&OX4 ABLE TO MAKE NEEDS KNOWN, IDEPENT IN THE ROOM, CALLS APPRT. SHE WAS ABLE TO REST ON AND OFF DURING THE NIGHT IN BETWEEN CARES. WHILE SLEEPING SHE DID DESAT ONE TIME D/T SNORING. PT NOT WANTING TO USE OUR CPAP BUT WILLING TO WEAR NC. VSS. DENIES PAIN OF ANY KIND. TELE IN PLACE SHOWING SR AT A RATE OF 98 CURRENTLY. SHE IS HOPEFUL TO GO HOME TODAY. SHE IS CURRENTLY SITTING UP IN THE RECLINER WATCHING TV W/ FEET UP. CALL LIGHT IN REACH, WILL REPORT TO ONCOMING RN.
[2025-01-25 08:25] VITALS: BP 143/97
[2025-01-25] MEDS ORDERED: LOSA50 PO (11:29)
[2025-01-25] MEDS ORDERED: DOCU100 PO (11:29)
[2025-01-25] MEDS ORDERED: SPIR25 PO (11:30)
--- NOTE | 2025-01-25 11:30 | NUR ---
ASSUMPTION OF CARE ASSUMED CARE OF PATIENT AT 0700 AFTER BEDSIDE SHIFT REPORT. PATIENT AWAKE, ALERT AND ORIENTED X 4. VITALS SIGNS STABLE AND WITH IN NORMAL LIMITS. MAP >65. HR 90-105 AND SINUS. 02 SAT >95% ON RA. CPAP WHEN SLEEPING, IF NO CPAP THAN 2L NC WHEN SLEEPING. PATIENT DENIES CHEST PAIN/PRESSURE AT THIS TIME. TR BAND FULLY RECOVERED PRIOR TO START OF SHIFT. PUNCTURE SITE HAS NO SIGNS OF ACTIVE BLEEDING/ HEMORRHAGE. TEGADERM CHG DRESSING IN PLACE. ARM BOARD IN PLACE. PATIENT RESTING COMFORTABLY IN BED IN LOWEST POSITION, CALL LIGHT WITH IN REACH.
[2025-01-25 12:11] VITALS: BP 146/85
[2025-01-25] MEDS ORDERED: METO50ER PO (12:17)
--- NOTE | 2025-01-25 12:22 | NUR ---
DISCHARGE: PT HAS BEEN CLEARED FOR DISCHARGE HOME. R RADIAL SITE CONTINUES TO HEAL WNL. IV ACCESS DC'd WNL. PT DRESSES SELF. DC PAPERWORK AND INSTRUCTIONS PROVIDED, PT AND SPOUSE V/U. PT ESCORTED FROM UNIT IN NAD.
== END 2025-01-25 12:40 | disposition home or self-care (01) | DRG 286 ==
LOC: ER 01:51 → PCU 02:32 → ERHOLD 02:32 → PCU 03:43
PROVIDERS: Emergency Medicine; ADMIT Internal Medicine
PROC: 4A023N7 Measurement of Cardiac Sampling and Pressure, Left Heart, Percutaneous Approach (ICD-10-PCS; principal; 2025-01-24)
PROC: B2111ZZ Fluoroscopy of Multiple Coronary Arteries using Low Osmolar Contrast (ICD-10-PCS; 2025-01-24)
DX: I11.0 Hypertensive heart disease with heart failure (principal); I50.21 Acute systolic (congestive) heart failure; J96.01 Acute respiratory failure with hypoxia; I45.2 Bifascicular block; I42.0 Dilated cardiomyopathy; G47.33 Obstructive sleep apnea (adult) (pediatric); E78.00 Pure hypercholesterolemia, unspecified; M19.90 Unspecified osteoarthritis, unspecified site; E66.9 Obesity, unspecified; I27.20 Pulmonary hypertension, unspecified; I34.0 Nonrheumatic mitral (valve) insufficiency; E11.9 Type 2 diabetes mellitus without complications; Z87.442 Personal history of urinary calculi; Z90.49 Acquired absence of other specified parts of digestive tract; Z98.890 Other specified postprocedural states; Z87.891 Personal history of nicotine dependence; Z90.721 Acquired absence of ovaries, unilateral; Z79.4 Long term (current) use of insulin; Z79.85 Long-term (current) use of injectable non-insulin antidiabetic drugs; Z79.899 Other long term (current) drug therapy
CPT/HCPCS: 36415; 71045; 71260; 76937; 80048; 80053; 80069; 82803; 82947; 83036; 83735; 83880; 84100; 84484; 85025; 85379; 85610; 85730; 93005; 93010; 93306; 93458; 94660; 94762; 99152; 99285-25; A6590; A9270; C1769; C1894; J1644; J1650; J1815; J1938; J2250; J3010; J7030; J7050; Q9967

== ENCOUNTER 2025-01-27 15:58 | Emergency (ER) | payer MEDICARE, OTHER ==
[~2025-01-27] VITALS: Ht 165.1 cm; Wt 106.6 kg
[~2025-01-27 15:58] MED LIST changes: +B-12500 MC2 PO; +DOCU100 PO; +FURO20 PO; +LOSA50 PO; +METO50ER PO; +MOUNJARO15 MG/0.5 SC; +SPIR25 PO
[2025-01-27 16:42] LABS: BASOPHILS ABSOLUTE AUTO 0.03 K/mm3 (0.00-0.23); BASOPHILS PERCENT AUTO 0 % (0-2); EOSINOPHILS ABSOLUTE AUTO 0.20 K/mm3 (0.00-0.68); EOSINOPHILS PERCENT AUTO 3 % (0-6); Hematocrit 45.8 % (33.0-51.0); Hemoglobin 15.5 g/dL (11.5-16.0); IMMATURE GRAN ABSOLUTE AUTO 0.01 K/mm3 (0.00-0.10); IMMATURE GRAN PERCENT AUTO 0 % (0-1); LYMPHOCYTES ABSOLUTE AUTO 2.92 K/mm3 (0.84-5.20); LYMPHOCYTES PERCENT AUTO 43 % (21-46); MONOCYTES ABSOLUTE AUTO 0.60 K/mm3 (0.16-1.47); MONOCYTES PERCENT AUTO 9 % (4-13); Mean Corpuscular HGB Conc 33.8 g/dL (31.5-36.5); Mean Corpuscular Volume 90 fL (80-100); NEUTROPHILS ABSOLUTE AUTO 2.99 K/mm3 (1.96-9.15); NEUTROPHILS PERCENT AUTO 44 % (41-73); NRBC ABSOLUTE 0.00 K/mm3 (0.00-0.02); NRBC Auto 0.0 /100 WBC (0.0-0.2); Platelet Count 205 K/mm3 (150-400); RDW Coefficient Variation 12.6 % (11.7-14.2); RDW Standard Deviation 41.1 fL (35.1-46.3)
[2025-01-27 17:08] LABS: Alanine Aminotransfer (ALT/SGP 36.0 U/L (12-78); Albumin, Blood 4.0 g/dL (3.4-5.0); Albumin/Globulin Ratio 1.1 (0.8-1.8); Anion Gap 7.0 mmol/L (3-11); Aspartate Aminotrans (AST/SGOT 26.0 U/L (12-37); Bilirubin, Total 0.5 mg/dL (0.1-1.0); Blood Urea Nitrogen 17.0 mg/dL (8-24); CO2, Blood 29.0 mmol/L (21-32); Calcium, Blood 9.3 mg/dL (8.5-10.1); Chloride, Blood 104.0 mmol/L (98-108); Creatinine, Blood 0.75 mg/dL (0.40-1.00); Globulin, Blood 3.6 g/dL (2.2-4.0); Glucose, Blood 163.0 mg/dL (70-99); Potassium, Blood 4.1 mmol/L (3.5-5.5); Sodium, Blood 136.0 mmol/L (136-145); Total Protein, Blood 7.6 g/dL (6.4-8.2)
[2025-01-27] MEDS ORDERED: CALCIUM GLUC IN NACL, ISO-OSM 50 ML IV ONE (17:50)
[2025-01-27] MEDS ORDERED: NS 250 ML IV SCH (17:50)
[2025-01-27 19:51] LABS: Thyroid Stimulating Hormone 1.81 uIU/mL (0.360-4.800)
[2025-01-27] MEDS ORDERED: TOPROL XL25 MG PO (21:28)
[2025-01-27 21:30] VITALS: BP 150/76
== END 2025-01-27 21:40 | disposition home or self-care (01) ==
LOC: ER 15:58
PROVIDERS: Physician Assistant; Student in an Organized Health Care Education/Training Program
DX: I49.1 Atrial premature depolarization (principal); E86.0 Dehydration; I11.0 Hypertensive heart disease with heart failure; I50.20 Unspecified systolic (congestive) heart failure; G47.33 Obstructive sleep apnea (adult) (pediatric); Z87.442 Personal history of urinary calculi; Z87.891 Personal history of nicotine dependence; Z79.899 Other long term (current) drug therapy
CPT/HCPCS: 71046; 80053; 82947; 83690; 83735; 83880; 84439; 84443; 84484; 85025; 93005; 93010; 96374; 99285-25; A9270; J0612; J7030